=== PATIENT | male | born 1955 | race Caucasian/White ===

== ENCOUNTER → 2016-09-30 | Outpatient (CLI) | payer OTHER ==
[~2016-09-30] MED LIST: ASPIRIN LO-DOSE81 MG PO; CENTRUM SILVER1 TAB PO; DULCOLAX5 MG PO; DUONEB INH; LIPITOR80 MG PO; NICODERM / HABIT7 MG TOP; NORCO 5-325 TA1 EACH PO; NORVASC10 MG PO; PRINIVIL (ZESTR20 MG PO; VALIUM5 MG PO
== END | disposition disaster alternative care site (69) ==
LOC: GKIC 09:58
DX: R91.8 Other nonspecific abnormal finding of lung field (principal)
CPT/HCPCS: A9552

== ENCOUNTER 2016-10-22 17:00 | Inpatient (IN) | payer OTHER ==
[~2016-10-22] VITALS: Ht 185.4 cm; Wt 91.5 kg
--- NOTE | ~2016-10-22 | PUL ---
PATIENT'S NAME: ANNA MORALES [facility] AGE: 61 Y [address] ROOM: [place] [address] LOCATION: GPCU ADMIT DATE: 10/28/2016 Pulmonary DISCHARGE DATE: 11/04/2016 FAMILY PHYSICIAN: Jasvir Juarez MD ATTENDING PHYSICIAN: Elio Sahni NAME OF PROCEDURE: Overnight Trend Oximetry DATE OF PROCEDURE: November 03 to November 04, 2016 REASON FOR EXAM: Nocturnal hypoxemia RESULTS: The patient underwent overnight trend oximetry with saturations ranging from 68% to 98%. Saturations were below 88% for more than 5 minutes. Heart rate ranged from 59 to 82 beats per minute. MD JAYLA ALTMAN/ /[id number] dtt: 11/12/16 1303 , Jordan Spencer. dtd: 11/05/16 1327
--- NOTE | ~2016-10-22 | DS ---
PATIENT'S NAME: ANNA MORALES [facility] AGE: 61 Y [address] ROOM: [id number] [place], [place] [address] LOCATION: GPCU ADMIT DATE: 10/28/2016 Discharge Summary DISCHARGE DATE: 11/04/2016 FAMILY PHYSICIAN: Jasvir Juarez MD ATTENDING PHYSICIAN: Elio Cao HOSPITAL COURSE: The patient is a 61-year-old white male with a left upper lobe mass concerning for cancer. He was seen in consultation by Dr. Cao. He underwent clearance in order to undergo a lobectomy. The patient's secondary diagnoses include severe peripheral vascular disease, coronary artery disease, COPD, alcohol, and tobacco abuse. He was cleared from a vascular and cardiac stand point and on 10/28/2016 presented to [facility] under the direction of Dr. Cao for a left robotic assisted upper lobe wedge resection with frozen section indicating adenocarcinoma and a left upper lobectomy. He tolerated the surgery without complication. A chest tube was placed at the time of surgery. After a short stay in the PACU, the patient was transferred up to the progressive care floor. Hospitalist services were asked to assist in monitoring the patient secondary to his alcoholism, also chemical dependent specialist saw the patient while he was here. The patient worked well with pulmonary rehab. He had no healing complications while he was in the hospital. In the early postoperative days, he did have fair quantities of pleural fluid and we were not able to discontinue the chest tube. There was also some tidaling and bubbling to the chest tube. Incidentally, the patient's pathology returned. It did return for adenocarcinoma and this was identified in the left upper lobe wedge portion, grade 2 of 3 primary tumor 1B. There were no mets noted to the lymph nodes. Eventually, we were able to discontinue the chest tube. The patient had no unusual findings on the postoperative x-ray after removal of the chest tube. He did continue to require 2 L of oxygen around the clock and therefore we did have respiratory make arrangements for home O2. The patient was found stable to discharge to home on 11/04/2016. DISCHARGE ORDERS: Diet as previous. Activity levels requiring no pulling, pushing, or lifting anything heavier than 10 pounds until December 09, 2016. The patient may remove his dressing to his left lateral chest on 11/05/2016. We will ask that he follow up with Dr. Cao and Dr. Núñez in 2 weeks on the same day. He is to see his primary care physician, Dr. Jasvir Juarez, in 1 week. PRINCIPAL DIAGNOSIS: Left upper lobe mass. SECONDARY DIAGNOSES: Adenocarcinoma, alcohol abuse, tobacco abuse, coronary artery disease, hypertension, dyslipidemia, peripheral vascular disease. PATIENT'S NAME: ANNA MORALES [facility] AGE: 61 Y [address] ROOM: [address] [address] LOCATION: GPCU ADMIT DATE: 10/28/2016 Discharge Summary DISCHARGE DATE: 11/04/2016 FAMILY PHYSICIAN: Jasvir Juarez MD ATTENDING PHYSICIAN: Elio Cao DISCHARGE MEDICATIONS: 1. Amlodipine 10 mg daily. 2. Lisinopril 20 mg daily. 3. Lipitor 80 mg daily. 4. Aspirin 81 mg daily. 5. Multivitamin 1 tab daily. 6. Dulcolax suppository 5 mg at bedtime/p.r.n. Valium 2.5 mg twice a day. 7. Nicotine patch 14 mg daily. 8. Ipratropium/albuterol one puff per inhalation 4 times a day. 9. Baldwin 5/325 one to two every 4-6 hours as needed. 10. MiraLAX 17 g up to four capfuls daily to keep bowels moving. The patient and verbalized understanding of the discharge orders. The patient was discharged to home in stable condition. ABBEY JACKSON, GEOVANNI FOR ELIO CAO, DO BOUDREAUXQ/modl /[id number] d: 11/20/162 t: 11/22/16 1514, DISCHARGE SUMMARY
--- NOTE | ~2016-10-22 | CON ---
PATIENT'S NAME: ANNA MORALES [facility] AGE: 61 Y [address] ROOM: [address] [place], [place] [address] LOCATION: GPCU ADMIT DATE: 10/28/2016 Consultation DISCHARGE DATE: FAMILY PHYSICIAN: JOEY BRANDON MD ATTENDING PHYSICIAN: Elio Sahni DATE OF CONSULTATION: 10/28/2016 CONSULTATION NOTE CHIEF COMPLAINT: Alcohol withdrawal. HISTORY OF PRESENT ILLNESS: The patient is a 61-year-old gentleman with past medical history of coronary artery disease, status post PCI; peripheral vascular disease, status post PCI; and COPD who presents here with a lung mass. The patient has a history of tobacco abuse and was found to have an incidental left lung mass. The patient was admitted to [facility] and had as CT-guided biopsy in beginning of September. During the biopsy, a biopsy was taken, but however his stay was complicated with pneumothorax. Chest tube was placed with subsequent removal. However, biopsy was nonconclusive and was admitted here today for lobectomy of left upper lung. The patient reports that since the biopsy was inconclusive, he had a subsequent PET scan which shows activity only around his solitary upper left mass. The patient was admitted today and had left upper lobe mass with lobectomy with Dr. Sahni. A chest tube was placed in after the procedure. The patient tolerated the procedure well. The patient has a history of alcohol abuse. The patient reports that he drinks at least 500 mL of Bacardi a day. He has been doing that ever since his college year. He denies drinking in the morning. However, he reports that he drinks in the morning during weekend. He reports that by the end of the day when he comes off from work he gets tremor and has to drink when he gets back to home. The patient's last drink was yesterday and reports that he has some hand shaking and irritability. The patient currently wants to decrease and/or stop his alcohol intake. The patient also was a former smoker, has close to 40 year-pack history of smoking. Last smoke was nine weeks ago. He stopped smoking and currently on nicotine patch. The patient currently denies any worsening of shortness of breath, chest pain, nausea, vomiting, abdominal pain, fever, or productive cough. The patient reports of pain around his chest tube insertion. PAST MEDICAL HISTORY: 1. COPD. PATIENT'S NAME: ANNA MORALES [facility] AGE: 61 Y [address] ROOM: [place] [address] LOCATION: GPCU ADMIT DATE: 10/28/2016 Consultation DISCHARGE DATE: FAMILY PHYSICIAN: JOEY BRANDON MD ATTENDING PHYSICIAN: Elio Sahni 2. CAD status post PCI. 3. Peripheral vascular disease, status post PCI. 4. Hypertension. 5. Alcohol abuse. PAST SURGICAL HISTORY: 1. Chest tube placement. 2. PCI for coronary artery disease and peripheral vascular disease. FAMILY HISTORY: Mother had brain cancer. He reports that father is healthy. SOCIAL HISTORY: He works for [employer]. A former smoker. Last smoke nine weeks ago. The patient has history of alcohol abuse. MEDICATIONS: 1. Amlodipine 10 mg every day. 2. Aspirin 81 mg every day. 3. Lipitor 80 mg every day. 4. Lisinopril 20 mg every day. 5. Centrum Silver tablets. ALLERGIES: BANANA, THROAT SWELLS UP. REVIEW OF SYSTEMS: All systems have been reviewed and are negative except for what I mentioned in the HPI. PHYSICAL EXAMINATION: VITAL SIGNS: Temperature 98.5, blood pressure 118/65, pulse of 85, and respiratory rate 16. GENERAL APPEARANCE: The patient is alert and awake, in no acute distress. HEENT: Head; normocephalic and atraumatic. Eyes; extraocular muscles intact. Sclerae nonicteric. Mouth; moist oral mucosa. Nose; no nasal discharge. Ears; no ear discharge. CHEST: Left-sided chest tube present. Decreased breath sounds in the left lower lung field. No rhonchi, rales, or wheezing heard. ABDOMEN: Soft, nontender, and nondistended. Bowel sounds present. EXTREMITIES: No edema. SKIN: Warm to touch. SUPPORTIVE EMPLOYMENT CASE MANAGER: Alert and oriented x3. Motor and sensory grossly intact. MUSCULOSKELETAL: Range of motion intact. No obvious joint effusion noted. PATIENT'S NAME: ANNA MORALES [facility] AGE: 61 Y [address] ROOM: [place] [address] LOCATION: GPCU ADMIT DATE: 10/28/2016 Consultation DISCHARGE DATE: FAMILY PHYSICIAN: JOEY BRANDON MD ATTENDING PHYSICIAN: Elio Sahni LABORATORY DATA: Labs: White blood cell count of 8.9, hemoglobin 13.2, MCV of 95.1, and platelets of 327,000. Albumin of 4. Creatinine 0.8, sodium of 142, potassium 4.5, and INR of 0.99. UA is unremarkable. ASSESSMENT AND PLAN: 1. Alcohol withdrawal. The patient reports of tremor and irritability. The last drink was yesterday. The patient has a history of close to 500 mL of Bacardi drink a day. The patient currently is willing to quit and/or decrease his intake. Therefore, we will start the patient on CIWA protocol. We will also start the patient on schedule Valium 5 mg t.i.d. and also add phenobarbital 30 mg b.i.d. to help with withdrawal and craving. We will continue banana bag for two more days. 2. History of coronary artery disease, status post percutaneous coronary intervention. Continue Lipitor and aspirin. 3. History of peripheral vascular disease, with stenting. Continue aspirin and statin. 4. Chronic obstructive pulmonary disease. We will add DuoNeb as needed. 5. Left upper lung mass status post lobectomy, biopsy pending. Chest tube in place. Treatment per primary team. 6. Prophylaxis. Deep venous thrombosis prophylaxis on heparin and also Pepcid for gastrointestinal prophylaxis. Greater than 70 minutes were spent on patient's care. Greater than 50% of the time was spent on direct patient's care. Assessment and plan was discussed with the patient and Dr. Sahni. A long discussion was made about alcohol cessation. The patient currently is willing to stop alcohol and wants to go home and stop or decrease the intake. We will start the patient on CIWA protocol, and add scheduled Valium and phenobarbital to help with the withdrawl. The patient's and 's questions were answered and sent with satisfaction. MD TELLO SANCHEZ/noa /[id number] d: 10/29/16 0003 t: 10/31/16 1233, CONSULTATION REPORT
--- NOTE | ~2016-10-22 | CD ---
PATIENT'S NAME: ANNA MORALES [facility] AGE: 61 Y [address] ROOM: [id number] [place], [place] [address] LOCATION: GPCU ADMIT DATE: 10/28/2016 Chemical Dependency Report DISCHARGE DATE: FAMILY PHYSICIAN: JASVIR BRANDON MD ATTENDING PHYSICIAN: Elio Cao DRUG AND ALCOHOL EVALUATION DEMOGRAPHICS: The patient is a 61-year-old male. He is from [place], [place]. PRESENTING PROBLEM: The drug and alcohol consult was ordered by his attending physician with the chief complaint being alcohol withdrawal, and his chart noted a history of alcohol abuse. MEDICAL HISTORY: The patient reported being hospitalized in the past and having a stent in his heart as well as others 5 years ago. Please see the patient's chart for full medical history. It was also noted that the patient has high blood pressure, high cholesterol, and COPD currently as well. He has a food allergy to bananas. The patient's primary care physician in [place] is Dr. Jasvir Brandon. The patient denied any unmet medical concerns or needs at this time. 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 The patient reported that he has been employed here for 14 years and enjoys this job. The patient denied any history. DRUG AND ALCOHOL USE HISTORY: Tobacco: The patient reported that he had smoked cigarettes for 40+ years in the amount of typically 2-1/2 to 3 packs per day. He is, however, on his 9th week of not smoking. He indicated that he quit smoking at that time due to health problems primarily, and that the nicotine patch has been very helpful up to this point. He attributes some of his current health problems with his heart and lungs to his history of smoking. Alcohol: The patient reported a [id number] history of drinking alcohol as well. He reports that he typically drinks on a daily basis in the amount of somewhere between 350 and 600 mL of Bacardi per day. He most often, during the week, starts at 5 o'clock after he gets home from work and drinks until he either goes to bed or his makes him quit. He did indicate that on weekends when he is not working, he will drink prior to this time, often in the morning, to help with tremors. The patient's reported that he has never gotten violent when he is drinking alcohol; however, he does get angry which she described as yelling, ranting, and cursing. She identified other PATIENT'S NAME: ANNA MORALES [facility] AGE: 61 Y [address] ROOM: [address] [place] [address] [facility] ADMIT DATE: 10/28/2016 Chemical Dependency Report DISCHARGE DATE: FAMILY PHYSICIAN: JASVIR BRANDON MD ATTENDING PHYSICIAN: Elio Cao consequences of his use as memory loss, relationship problems, embarrassment to family and friends, and marital issues. She indicated that at the end the night, he is often drunk to the point where he cannot walk or talk clearly and slurs his words. It was also indicated that he had received a DUI approximately 5 years ago. Marijuana: The patient reported that he first used marijuana in college during the 1970s. He reports that he currently uses only once in a great while when camping, the last time being Father's Day. This was described to be a total of 3 to 4 times per year. No negative consequences were reported. The patient denied any other substance use to include prescription and over- the-counter medications. He identified his drug of choice as alcohol, stating that it makes him feel good and forget problems and stressors. He also indicated that when he drinks, it gives him a chance to think and plan for his next day's work. The patient reported that he may have had a previous substance abuse evaluation when he got his DUI around 2011. He indicated that he received probation at that time, but still continued to drink alcohol. He denies any history of drug and alcohol treatment. NEGATIVE CONSEQUENCES OF USE: The patient's , who was present during the evaluation today and gave a great deal of input, indicated that his co-workers know about his drinking as well as family, and she feels that it contributes to family problems the most. She does not want the grand-kids around him when he is drinking, so he is often excluded from family activities. The patient's also worries about his safety, his health, and possible continued legal problems, indicating that if he gets another DUI, he would most likely lose his job. As previously mentioned, the patient received a DUI around the year 2011. At that point, he got 6 months of probation and also had a breathalyzer machine connected with his car. It was indicated that the patient continued to drink during this probation. The patient indicated that he has tried to cut down or quit a couple of times in the past, but would usually only make it to maybe possibly 3 days due to withdrawal symptoms. He indicates that he has cravings and strong urges to use. He has experienced both blackout and memory loss due to drinking alcohol. His drinking has caused recurrent interpersonal problems including being late to or skipping family gatherings and obligations altogether due to already being intoxicated prior to the event. The patient reported having accidents that were related to his drinking to include being intoxicated both times when he fell down and broke ribs, needing medical attention. The patient denies any history of overdose and indicated that he does not get hangovers. He did report a history of withdrawal symptoms, stating that he gets these on a daily basis. His indicated that he wakes up with withdrawal symptoms to include shakes and tremors; however, denied any history of seizures. The patient did not indicate any triggers to use, but PATIENT'S NAME: ANNA MORALES [facility] AGE: 61 Y [address] ROOM: [id number] [place] [address] [facility] ADMIT DATE: 10/28/2016 Chemical Dependency Report DISCHARGE DATE: FAMILY PHYSICIAN: JASVIR BRANDON MD ATTENDING PHYSICIAN: Elio Cao both he and his indicate that it is just a part of his every day routine. His use is not necessarily based on any influence of family or friends, but the patient just drinks on his own as part of his daily routine. It was reported that his , daughter, and parents have all voiced concerns about his drinking. The primary concern is around his health or family problems and issues that are caused by his drinking. The patient denied any known family history of alcohol or drug use or abuse. LEGAL HISTORY: As noted above under Negative Consequences, the patient did get a DUI around 2011 by which he completed 6 months of probation. He has no further legal history related to substance use. The patient is not currently on probation, so the SSI and SRARF results and background check are unavailable. FAMILY/SOCIAL/PEER HISTORY: This patient lives with his in [place], [place]. They have been 18 years, and between the 2 of them, have 6 children. Two of their children still live in the [place] area, and they have a close relationship with all of their children. They also reported having 3 grandchildren. The patient denied any family history of mental health problems or substance use. PSYCHIATRIC/BEHAVIORAL HISTORY: The patient denied any history of psychiatric hospitalizations. He denied any previous outpatient mental health counseling. The patient denied any mental health symptoms such as depression or anxiety. He also denied any suicidal ideations or attempts or self-harming behaviors. He did identify a trauma history or grief struggle to include the of his mother and best friend, which the patient's indicated affects him every day. COLLATERAL INFORMATION: The physician notes on this patient were reviewed for collateral information as well as information gained from the patient's who participated in this evaluation as well. No dicrepancies were noted. ASAM CRITERIA: 1. The patient appears to be at high risk in this dimension. Although he is currently at [facility] and being treated for alcohol withdrawal symptoms, this could continue to cause problems once the patient returns home. As previously mentioned, this patient reported daily withdrawal symptoms from alcohol including shakes and tremors when he wakes up in the morning. 2. Biomedical conditions and complications: The patient appears to be at moderate risk in this dimension. It was indicated that some of this patient's current physical illnesses and medical concerns may be connected to his alcohol consumption and could complicate treatment. PATIENT'S NAME: ANNA MORALES [facility] AGE: 61 Y [address] ROOM: [id number] [place], [place] [address] LOCATION: [facility] ADMIT DATE: 10/28/2016 Chemical Dependency Report DISCHARGE DATE: FAMILY PHYSICIAN: JASVIR BRANDON MD ATTENDING PHYSICIAN: Elio Cao 3. Cognitive, behavioral, and emotional conditions: The patient is at low risk in this dimension. There are no psychiatric illnesses or psychological, behavioral, or emotional problems that need to be addressed or might complicate treatment. 4. Readiness/motivation: The patient appears to be at the early contemplation stage of change. He did indicate that he would be willing and believes he needs to cut down his drinking; however, is not highly motivated to abstain from alcohol use. Due to this, the patient appears to be at moderate to high risk in this dimension. 5. Relapse, continued use, continued problem: The patient appears to be at high risk in this dimension. Although he is considering cutting down and agrees with his that his drinking is somewhat problematic, he is not highly motivated to abstain from use at this time. His drinking has been part of this patient's daily routine for the past 40 years, making this a very difficult habit to change. He does not appear to have an understanding of or the skills needed to cope with his alcohol use symptoms or impulses to use. Recovery environment: The patient appears to be at moderate risk in this dimension. Although there are no dangerous family members, or living situations that would pose a threat to treatment engagement and success, [place] and options. He is also not in support of groups such as AA or any jemima-based support. Due to the demographics, there is a lack of support and resources that could increase the likelihood of successful treatment. CLINICAL IMPRESSION: The patient was willing to meet for the evaluation, but was very cautious and did not appear to necessarily want to meet. His overall affect was consistent with his mood. He seemed frustrated at times regarding the information that was being brought out in this evaluation. The patient appears to currently be at the early stages of contemplation. His main motivation to make any change around his drinking is tied to his family members and their concern. It is believed by this author that had the patient's not been there, he would have given little to no information regarding his substance use. Because his was present, however, a great deal of information was obtained regarding his substance use issues, mainly around alcohol. DIAGNOSIS: 303.90 (F10.20) severe alcohol use disorder. The patient meets the following criteria for severe alcohol use disorder: Alcohol is taken in larger amounts over a longer period of time than intended. Unsuccessful efforts to cut down. A great deal of time being spent using alcohol. Cravings. Recurrent alcohol use resulting in failure to fulfill obligations at home. Continued alcohol use despite having persistent interpersonal problems that are caused or exacerbated by the effects of alcohol. Tolerance and withdrawal. PATIENT'S NAME: ANNA MORALES [facility] AGE: 61 Y [address] ROOM: [id number] [place], [place] [address] [facility] ADMIT DATE: 10/28/2016 Chemical Dependency Report DISCHARGE DATE: FAMILY PHYSICIAN: JASVIR BRANDON MD ATTENDING PHYSICIAN: Elio Cao TREATMENT RECOMMENDATIONS: The primary level of care being recommended at this time would be outpatient treatment. This level of care may not be available in this patient's particular community, but is available in some of the surrounding towns. A secondary level of care for this patient would be short-term inpatient treatment. There appears to be several barriers to any level of treatment at this time. Although the patient verbalized that he would cut down on alcohol, he is not highly motivated to do so, especially not to completely quit. In the community in which the patient resides, there are AA meetings available, but he is not receptive to this at this time. He also did not appear very receptive to outpatient treatment either, especially since he would likely have to drive to another town in order to participate at this level. The patient reported not being receptive to AA or any other jemima-based treatment. He was not necessarily in support of short-term inpatient either, but in hearing the concerns of his , has some slight motivation to make change. Formal treatment even at the lower levels recommended above may not be considered by the patient at this time. The primary co-occurring issues to his drinking are currently concerns by his family members as well as current medical difficulties. Both of these may provide leverage for him to seek treatment upon his discharge from [facility]. RUSS BENAVIDEZJulia, [facility] ELIO CAO DO PT/modl /[id number] cc: JASVIR BRANDON MD, Family Physician Elio Cao DO, Attending Physician d: 11/03/16 1233 t: 11/07/16 0933, CHEMICAL DEPENDENCY/PSYCHOSOCIAL ASSESSMENT~
--- NOTE | ~2016-10-22 | OR ---
PATIENT'S NAME: ANNA DYE [facility] AGE: 61 Y [address] ROOM: [address] [place] [id number] LOCATION: GPCU ADMIT DATE: 10/28/2016 OR/Procedure Report DISCHARGE DATE: FAMILY PHYSICIAN: JASVIR BRANDON MD ATTENDING PHYSICIAN: Elio Cao SURGEON: Elio Cao DO CEMENT RUBBER: DATE OF PROCEDURE: 10/28/2016 PREOPERATIVE DIAGNOSES: 1. Left upper lobe mass. 2. Active alcoholism. POSTOPERATIVE DIAGNOSES: 1. Left upper lobe mass. Frozen section indicating adenocarcinoma. 2. Active alcoholism. PROCEDURE: Left robotic-assisted upper lobe wedge resection with frozen section indicating adenocarcinoma and left upper lobectomy. DESCRIPTION OF PROCEDURE: Mr. Dye is a 61-year-old white male with the above-noted diagnosis. He has been brought to the operative suite today for his procedure after informed consent was obtained. He was intubated with a dual-lumen endotracheal tube and then placed into the lateral decubitus position sterilely prepped and draped. We then made our initial incision in the 7th intercostal space in the midaxillary line and introduced an 8 mm port. We then visualized the remaining 3 ports going in, two 12's and another 8 in the 7th-8th intercostal space in the lateral line. We then made an incision and introduced a 12 mm assistance port. We then docked the robot, instilled carbon dioxide, and I returned to the console. The left upper lobe mass was easily identified, and with graspers and an endoscopic stapler, we resected the upper lobe mass, sent this for frozen section. This did indicate adenocarcinoma. Therefore, we proceeded with completing left upper lobectomy. We identified the hilar structures anteriorly, and with careful dissection, circumferentially dissected the pulmonary vein and identified the pulmonary artery. We turned then to the fissure and identified this easily, opened the fissure utilizing endoscopic stapling device with a blue load at the apical area, divided the loose attachments of the upper and lower lobe, and then continuous electrocautery with dissection to identify the arterial structure to the upper lobe in their entirety. We then divided these vessels of which there were 6 with a stapling device. Once this was completed, we then turned our attention back to the venous drainage structure and again divided this with a vascular stapler. There were 2 additional smaller branches. With dissection, we circumferentially dissected free and divided these with a vascular stapler. We then continued to perform careful dissection around the PATIENT'S NAME: ANNA DYE [facility] AGE: 61 Y [address] ROOM: [address] [place], [place] [address] [facility] ADMIT DATE: 10/28/2016 OR/Procedure Report DISCHARGE DATE: FAMILY PHYSICIAN: JASVIR BRANDON MD ATTENDING PHYSICIAN: Elio Cao bronchus and then utilizing the stapling device again with a green load, divided the bronchus in 2 separate portions and then the specimen was placed in an EndoCatch bag. Lymphadenectomy was then performed in the #4, #5, #6, #10, and #8 areas. Inferior pulmonary ligament was freed with electrocautery. The specimen was removed. Copious amounts of antibiotic-infused saline was used to irrigate the pleural space under robotic visualization. Anesthesia began ventilations to remaining left lower lobe under sterile water irrigation. There was no evidence of any leak from the cuff. All irrigant was removed. Two chest tubes were placed in addition through the most anterior 2 ports and then the 2 lateral ports were closed. We then enlarged the assistance port anteromedially by another 2 cm and then removed the EndoCatch bag. This incision was then closed in layered fashion with 0 Vicryl, 2-0 Vicryl, and 4-0 Monocryl. 0.25% Marcaine was used to perform intercostal blocks and infiltration of the fascia as well. Chest tubes were placed to suction. The patient was extubated and returned to the recovery room in stable condition. ELIO CAO DO MCB/modl /[id number] CC: Jasvir Brandon MD d: 10/28/162012 t: 10/29/16 1042, OPERATIVE SUMMARY
[~2016-10-22 17:00] MED LIST changes: -DULCOLAX5 MG PO; -DUONEB INH; -NICODERM / HABIT7 MG TOP; -NORCO 5-325 TA1 EACH PO; -VALIUM5 MG PO
[2016-10-28 08:35] LABS: HEMATOCRIT 38.9 % (37.0-53.0); HEMOGLOBIN 13.2 g/dL (11.0-16.0); MCH 32.3 pg (27.0-34.0); MCHC 33.9 gm/dL (32.0-36.5); MCV 95.1 fl (83.0-98.0); MPV 9.3 fl (9.4-12.4); PLATELET COUNT 327 K/uL (150-450); RBC 4.09 M/uL (3.50-5.50); RDW-CV 12.3 % (11.9-14.6); WBC 8.9 K/uL (4.0-11.0)
[2016-10-28 08:45] LABS: INR - (THERAPEUTIC) 0.99 (0.92-1.07); PROTIME 10.4 SECONDS (9.8-11.4)
[2016-10-28 08:48] LABS: ALBUMIN 4.1 gm/dL (3.5-5.0); ANION GAP 11.5 (10.0-19.0); BLOOD UREA NITROGEN 14 mg/dL (6-24); CALCIUM 8.8 mg/dL (8.5-10.5); CHLORIDE 107 mMol/L (96-110); CO2 28 mMol/L (22-32); CREATININE 0.8 mg/dL (0.6-1.3); PHOSPHORUS 2.8 mg/dL (2.5-4.9); POTASSIUM 4.5 mMol/L (3.7-5.1); SODIUM 142 mMol/L (135-145)
[2016-10-28 09:21] LABS: BILIRUBIN URINE NEGATIVE (NEGATIVE); BLOOD URINE NEGATIVE /UL (NEGATIVE); COLOR URINE YELLOW (YELLOW); GLUCOSE URINE NEGATIVE (NEGATIVE); KETONE URINE NEGATIVE (NEGATIVE); LEUKOCYTES URINE NEGATIVE /UL (NEGATIVE); NITRITE URINE NEGATIVE (NEGATIVE); PROTEIN URINE NEGATIVE (NEGATIVE); SPEC GRAVITY URINE 1.025 (1.003-1.035); TURBIDITY URINE CLEAR (CLEAR); UROBILINOGEN URINE NORMAL (NORMAL)
[2016-10-28 11:06] LABS: ABSOLUTE NEUTROPHIL CT (ANC) 5.4 K/uL (1.4-9.0); BANDED NEUTROPHIL # 0.2 K/uL (0.0-0.1); BANDED NEUTROPHILS % 2 %; LYMPHOCYTE # 2.9 K/uL (0.8-4.0); LYMPHOCYTE % 33 %; MONOCYTE # 0.4 K/uL (0.0-1.0); SEGMENTED NEUTROPHIL # 5.3 K/uL (1.4-9.0); SEGMENTED NEUTROPHIL % 59 %
--- NOTE | 2016-10-28 21:03 | NUR ---
Significant Event:A/O X 3. Resting in bed. HR in 80's, SBP 110's. NO edema. L) lower lobe absent, clear diminished lung sounds on the right. O2 sats >90% on 2L/NC. ETCO2 in 40's. POSt op vital signs start @ 1700. CT to l) side with 2 tubes going into one tube, slight amount of bubbling in chamber, attached to suction. 160 ml bloody drainage out of chest tube when arrived to the floor. Likes brewed tea and tolerating it well. Reports some pain, but is using Morphine PSYCH SPECIALIST, last NOrco at 1416 in recovery. Fentanyl also in recovery. IV toradol dose started at 1814. Nicotine patch to R) anterior chest, quit smoking 8 weeks ago. and patient voice concerns that patient has DT's every day just prior to drinking regimen of 600-750 ml of Barcadi Rum daily. Banana bag given in OR, CIWA score 4 at this time. Madan calf pneumatics on legs. Dressing to L) chest is C/D/I. Tolerating soft diet of mashed potatoes and ice cream at supper time. is supportive at the bedside. IVF infusing. in R) hand PIV. Keita patent. Last BM was 10/28/16, requested MOM but declined rectal suppository. Follow up:
[2016-10-28 21:53] LABS: INR - (THERAPEUTIC) 0.97 (0.92-1.07); PROTIME 10.2 SECONDS (9.8-11.4)
[2016-10-29 03:56] LABS: BASOPHIL % 0.1 %; HEMATOCRIT 33.9 % (37.0-53.0); HEMOGLOBIN 11.4 g/dL (11.0-16.0); IMMATURE GRANULOCYTE # 0.1 K/uL (0.0-0.3); IMMATURE GRANULOCYTE % 0.3 %; LYMPHOCYTE # 1.7 K/uL (0.8-4.0); LYMPHOCYTE % 11.1 %; MCH 33.6 pg (27.0-34.0); MCHC 33.6 gm/dL (32.0-36.5); MONOCYTE # 1.5 K/uL (0.0-1.0); MONOCYTE % 9.9 %; MPV 9.8 fl (9.4-12.4); NEUTROPHIL # (ANC) 11.8 K/uL (1.4-9.0); NEUTROPHIL % 78.6 %; NRBC % 0 /100WBC (0-0.00); RBC 3.39 M/uL (3.50-5.50); RDW-CV 12.8 % (11.9-14.6); WBC 15.1 K/uL (4.0-11.0)
[2016-10-29 04:03] LABS: PLATELET COUNT 252 K/uL (150-450)
--- NOTE | 2016-10-29 04:16 | NUR ---
Significant Event: Patient A/Ox3. VSS on 1-2L NC. Patient has L) chest tubes to 20mmHg suction. 720ml out total since tubes placed. Patient does appear to be detoxing from alcohol, so CIWA assessment completed Q1H. Lorazepam and diazepam given. Morphine DENTAL AMALGAM PROCESSOR demand dose only 1mg with 6 minute lockout. Patient had 27 demands and 27 deliveries. Patient has slept well most of the later part of the night. Tremors noted. Patient feels his pain is well controlled. Follow up: Continue to monitor for alcohol withdrawal.
[2016-10-29 04:17] LABS: ALBUMIN 3.4 gm/dL (3.5-5.0); ANION GAP 12.4 (10.0-19.0); CALCIUM 7.7 mg/dL (8.5-10.5); CREATININE 0.9 mg/dL (0.6-1.3); POTASSIUM 4.4 mMol/L (3.7-5.1); TOTAL BILIRUBIN 0.5 mg/dL (0.0-1.5); TOTAL PROTEIN 6.3 g/dL (6.0-8.4)
--- NOTE | 2016-10-29 13:58 | NUR ---
1205 Came by to see Shiv but RT was in doing a breathing treatment with him so I will try to see at a different time. In reviewing his chart, it appears that he lives in [place] with his . His PCP is listed as . I am guessing upon dismissal he will be able to return home. Talked with his RN Dilia about this. She thinks he will be able to return home as well. She reports that he still has a CT in at this time and is on the detox pathway for his alcohol issues. Let her know I would come back by to see him later today or on Tuesday to talk with him about his dismissal plans. CM to continue to follow and assist. Plan home.
--- NOTE | 2016-10-29 16:50 | NUR ---
PATIENT HAS BEEN UP IN CHAIR AND AMBULATED IN HALLWAY X1 AND WALKED THE WHOLE SIDE OF THE FLOOR AND TOLERATED WELL. PATIENT IS STILL ON 1 LITER NC. CHEST TUBE IS NOW TO WATER SEAL AND HAD 240ML OUT. RESEARCH ANALYST WAS DC'D, NORCO GIVEN AT 1600.
--- NOTE | 2016-10-30 05:14 | NUR ---
Significant Event:A/Ox3. Drowsy most of the shift. CT to H20 seal with 130ml sanguineous drainage, with tidaling with respirations. [place] given q4h to stay above the pain. Last dose 0130. O2 continues at 2L/NC sats 92-95%. Keita discontinued at 0400. No void as of this note. Calm and cooperative with cares. CIWA score 2-5 throughout the shift. Follow up:Continue to monitor CT and pain.
[2016-10-30 05:58] LABS: BASOPHIL # 0.1 K/uL (0.0-0.2); BASOPHIL % 0.5 %; EOSINOPHIL # 0.1 K/uL (0.0-0.5); EOSINOPHIL % 1.2 %; HEMATOCRIT 32.2 % (37.0-53.0); HEMOGLOBIN 10.5 g/dL (11.0-16.0); IMMATURE GRANULOCYTE % 0.2 %; LYMPHOCYTE # 3.3 K/uL (0.8-4.0); MCH 33.1 pg (27.0-34.0); MCHC 32.6 gm/dL (32.0-36.5); MCV 101.6 fl (83.0-98.0); MONOCYTE # 1.1 K/uL (0.0-1.0); MONOCYTE % 8.8 %; MPV 9.7 fl (9.4-12.4); NEUTROPHIL # (ANC) 7.6 K/uL (1.4-9.0); NEUTROPHIL % 62.3 %; NRBC % 0 /100WBC (0-0.00); PLATELET COUNT 239 K/uL (150-450); RBC 3.17 M/uL (3.50-5.50); RDW-CV 12.7 % (11.9-14.6); WBC 12.1 K/uL (4.0-11.0)
[2016-10-30 06:29] LABS: ALK PHOS 62 IU/L (33-138); ALT 25 IU/L (12-78); AST 30 IU/L (10-40); BLOOD UREA NITROGEN 9 mg/dL (6-24); CALCIUM 7.7 mg/dL (8.5-10.5); CHLORIDE 107 mMol/L (96-110); CO2 30 mMol/L (22-32); CREATININE 0.7 mg/dL (0.6-1.3); MAGNESIUM 2.4 mg/dL (1.8-2.6); SODIUM 141 mMol/L (135-145); TOTAL BILIRUBIN 0.4 mg/dL (0.0-1.5); TOTAL PROTEIN 5.8 g/dL (6.0-8.4)
--- NOTE | 2016-10-30 16:58 | NUR ---
PATIENT HAS BEEN RESTING THROUGHOUT DAY. HE HAS ATTEMPTED A BM X2 BUT ONLY GAS. PATIENT HAS RECEIVED NORCO [address] TABS [address] OUTPUT 210ML TODAY. HE WAS GIVEN BUMEX 2MG IV TODAY AND HAS HAD GREAT UOP. TIDALING IS LESS AND BUBBLING HAS DECREASE TODAY.
--- NOTE | 2016-10-31 04:56 | NUR ---
Significant Event:A/Ox3. VSS on 2L/NC to maintain >90%. Ambulated in halls x2, on 2nd walk we did increase oxygen to 3L/NC. Lungs sounds clear/diminished. CT to H2O seal with tidaling with respirations, no bubbling noted. [place] x2 tonight with pain well controlled. CT continues to have sanguineous drainage, 120ml output. CIWA score 0-4. Follow up:Continue to monitor chest tube.
[2016-10-31 05:44] LABS: ALBUMIN 3.2 gm/dL (3.5-5.0); ALK PHOS 76 IU/L (33-138); ALT 23 IU/L (12-78); ANION GAP 10.2 (10.0-19.0); AST 30 IU/L (10-40); BLOOD UREA NITROGEN 6 mg/dL (6-24); CALCIUM 8.3 mg/dL (8.5-10.5); CHLORIDE 104 mMol/L (96-110); CO2 31 mMol/L (22-32); CREATININE 0.6 mg/dL (0.6-1.3); POTASSIUM 4.2 mMol/L (3.7-5.1); SODIUM 141 mMol/L (135-145); TOTAL BILIRUBIN 0.5 mg/dL (0.0-1.5); TOTAL PROTEIN 6.3 g/dL (6.0-8.4)
--- NOTE | 2016-10-31 16:37 | NUR ---
Significant Event: 2 JONO STOLLS THIS AM, BUT NONE SINCE. PT SAYS HE DOES FEEL BETTER. WALKED IN [place] X1, HERE MOST OF THIS SHIFT. KEEPING UP ON PAINMEDS PT HAS NO DRONE SOFTWARE DEVELOPMENT ENGINEER ON. VOIDS PER URINAL. PLEASENT AND COOPERATIVE WITH CARES. HE DOES HAVE A SMALL AMT OF CREPITIS RIGHT AROUND THE INCISION/DRESSING SITE, HAS NOT CHANGES IN SIZE THIS SHIFT. Follow up: MONITOR
--- NOTE | 2016-11-01 03:53 | NUR ---
Significant Event: Patient alert and oriented. Up with 1 assist. VSS on 2L oxygen. [place] given x2 for pain management last at 0245. Chest tube to left with 80 ml out. Ambulated in panchal. Pleasant and cooperative with cares. Follow up: continue to monitor
[2016-11-01 06:01] LABS: ALBUMIN 2.9 gm/dL (3.5-5.0); ALK PHOS 85 IU/L (33-138); ALT 22 IU/L (12-78); ANION GAP 7.5 (10.0-19.0); AST 23 IU/L (10-40); BLOOD UREA NITROGEN 7 mg/dL (6-24); CALCIUM 8.7 mg/dL (8.5-10.5); CHLORIDE 103 mMol/L (96-110); CO2 33 mMol/L (22-32); CREATININE 0.7 mg/dL (0.6-1.3); MAGNESIUM 1.9 mg/dL (1.8-2.6); POTASSIUM 4.5 mMol/L (3.7-5.1); SODIUM 139 mMol/L (135-145); TOTAL BILIRUBIN 0.5 mg/dL (0.0-1.5); TOTAL PROTEIN 6.2 g/dL (6.0-8.4)
--- NOTE | 2016-11-01 17:31 | NUR ---
Significant Event: PT HAD AN UNEVENTFUL DAY UNTIL ABOUT 1530 WHEN HE STOOD UP TO USE HIS URINAL AND GOT HIS CHEST TUBE CAUGHT UNDER HIS RECLINER. HE PULLED THE SOFT TUBING AWAY FROM THE CHEST TUBES THEMSELVES. WAS ABLE TO PUSH THEM BACK TOGETHER AND TAPE THEM UP TO HIS FLANK BETTER. CALLED DR CAO ORDERS RECIEVED. Follow up: PLAN ON CHEST TUBE REMOVAL Tuesday.
[2016-11-02 05:10] LABS: ALK PHOS 111 IU/L (33-138); ALT 36 IU/L (12-78); ANION GAP 10.5 (10.0-19.0); AST 41 IU/L (10-40); BLOOD UREA NITROGEN 8 mg/dL (6-24); CALCIUM 9.2 mg/dL (8.5-10.5); CHLORIDE 101 mMol/L (96-110); CO2 32 mMol/L (22-32); CREATININE 0.7 mg/dL (0.6-1.3); MAGNESIUM 1.9 mg/dL (1.8-2.6); POTASSIUM 4.5 mMol/L (3.7-5.1); SODIUM 139 mMol/L (135-145); TOTAL BILIRUBIN 0.5 mg/dL (0.0-1.5); TOTAL PROTEIN 6.3 g/dL (6.0-8.4)
--- NOTE | 2016-11-02 05:23 | NUR ---
Significant event: A/O x 3. Up to bathroom with [address] to water seal at midnight, had 170ml out throughout the night. [place] 2 tabs given x 2 with the last time at 0300. VSS patient on 1L nc with sats in the mid 90's.
--- NOTE | 2016-11-02 16:03 | NUR ---
A-NUTRITION F/U S/P L)LOWER LOBECTOMY. CHEST TUBE TO WATER SEAL LABS REVIEWED: GLU 117, BUN 3.0 MEDS: VALIUM DIET RX; REGULAR W/ENSURE ENLIVE BID. PO INTAKE HAS BEEN 100%. PT IS CHOOSING A VARIETY OF FOODS AT EACH MEAL. EST NUTR NEEDS: [id number] KCALS AND 108 GM PROTEIN D-NUTRITION PROBLEM RESOLVED W/ADEQUATE PO INTAKE. NOT AT RISK; NO NUTRITION DX IDENTIFIED. I-CONTINUE W/ENSURE ENLIVE BID TO MAINTAIN NUTRITION STATUS M/E-WILL ASSIST NEEDED
--- NOTE | 2016-11-02 17:23 | NUR ---
Significant Event: Pt alert and oriented x3. Pt 1PA and ambulated 11 laps of PCU with PT during the shift. Pain to left flank controlled with [place] 5/325 PO two tablets and last given at 1418. 80 ml of drainage from left chest tube during the shift. IV to R) AC, saline lock. Follow up: chest x-ray in am.
--- NOTE | 2016-11-03 04:41 | NUR ---
Significant Event: A/O x3. Afebrile. Left sided pain where chest tubes located, gave norco 1 tab x1. LS clear/dim. SBP 100-114. Chest tube water sealed with 20ml out. Up 1 assist. Cooperative with cares. Follow up: Continue to monitor per plan of care.
[2016-11-03 05:04] LABS: ALBUMIN 3.2 gm/dL (3.5-5.0); ALK PHOS 136 IU/L (33-138); ALT 66 IU/L (12-78); AST 71 IU/L (10-40); BLOOD UREA NITROGEN 8 mg/dL (6-24); CALCIUM 9.4 mg/dL (8.5-10.5); CHLORIDE 99 mMol/L (96-110); CO2 33 mMol/L (22-32); CREATININE 0.7 mg/dL (0.6-1.3); MAGNESIUM 1.9 mg/dL (1.8-2.6); SODIUM 137 mMol/L (135-145); TOTAL BILIRUBIN 0.5 mg/dL (0.0-1.5); TOTAL PROTEIN 6.9 g/dL (6.0-8.4)
--- NOTE | 2016-11-03 12:29 | NUR ---
Introduced self and CM role to Shiv, his and other family member who was at bedside. Shiv tells me that he lives in [facility] with his and plans to return there when he is medically cleared to do so. His PCP is Dr.Garrett Juarez and he follows up with him or another physician at the clinic whenever he needs to. He does his own medications at home, his is there to help him if he should need it. Jai tells me he will continue to do his own medication management at home when he is dismissed. Let him know that I did get a consult to talk with him about his ETOH abuse. He is not currently wanting inpatient treatment, so no CD eval will be done while he is here. Jai was open to resources so I provided him with area inpatient/outpatient treatment centers and counselors in the surrounding areas incase he would change his mind. Also let him know that he could get a CD eval done and an outpatient if he should wish to do so. Jai doesn't have any DME at home, but thinks he might want a FWW when he goes home to help with balance. Gave him a list of DME companies here in [facility] where he could obtain one prior to his dismissal. I left a script on the chart for MD to sign for a FWW for Jai. He and family deny any other questions, needs or concerns. Sticky note left on the chart re:dismissal plans -- home with no inpt ETOH treatment wanted, resources left with him. CM to continue to follow and assist.
--- NOTE | 2016-11-03 16:46 | NUR ---
Significant Event: Pt A/O x3. Pt rates pain 3-6 throughout shift, controlled with [place] 2 tabs. Last dose given at 1443, two tabs. Pt 1PA, uses wc as walker if ambulating hallways. Dr. Sahni removed chest tubes from pt around 1200. Will have f/u chest x-ray in am. Right FA PIV sl'd. Follow up:
--- NOTE | 2016-11-04 03:55 | NUR ---
Pt A&Ox4. VSS on 0-2L O2. Trend ox this shift. Dressing to left lateral chest CDI. Recieves 2 norco q4hrs for pain control, with good relief. Alcohol withdrawl protocol in place. Voiding and taking PO without issue. Possible D/C in AM.
[2016-11-04 04:17] LABS: ALBUMIN 3.2 gm/dL (3.5-5.0); ALK PHOS 133 IU/L (33-138); ALT 73 IU/L (12-78); ANION GAP 10.4 (10.0-19.0); AST 60 IU/L (10-40); CALCIUM 8.8 mg/dL (8.5-10.5); CHLORIDE 99 mMol/L (96-110); CO2 32 mMol/L (22-32); CREATININE 0.8 mg/dL (0.6-1.3); MAGNESIUM 2.4 mg/dL (1.8-2.6); POTASSIUM 4.4 mMol/L (3.7-5.1); SODIUM 137 mMol/L (135-145); TOTAL PROTEIN 6.6 g/dL (6.0-8.4)
[2016-11-04 04:18] LABS: BLOOD UREA NITROGEN 13 mg/dL (6-24); TOTAL BILIRUBIN 0.3 mg/dL (0.0-1.5)
[2016-11-04] MEDS ORDERED: DULCOLAX5 MG PO (11:59)
[2016-11-04] MEDS ORDERED: VALIUM5 MG PO ×2 (12:02)
[2016-11-04] MEDS ORDERED: DUONEB INH (12:05)
[2016-11-04] MEDS ORDERED: NICODERM / HABIT7 MG TOP (12:05)
[2016-11-04] MEDS ORDERED: NORCO 5-325 TA1 EACH PO (12:07)
--- NOTE | 2016-11-04 13:56 | NUR ---
PATIENT A/Ox3. VSS on 2L/NC, WHICH PATIENT AND HAVE BEEN INSTRUCTED ON HOW TO USE AT HOME, BY HOME CARE. PIV DISCONTINUED TO R)AC. PATIENT, AND RN DISCUSSED DISMISSAL INSTRUCTIONS AND NEW MEDICATIONS. ALL QUESTIONS ANSWERED AND PATIENT AND EXPRESS NO CONCERNS WITH DISCHARGE. CANCER INSURANCE PAPERWORK WILL BE FAXED TO ESTER JACKSON APRN TO FILL OUT AND MAIL BACK TO PATIENT. PATIENT TRANSPORTED TO PRIVATE VEHICLE VIA WC WITH LEGAL OFFICE ADMINISTRATOR AND AT 1355.
== END 2016-11-04 14:00 | disposition disaster alternative care site (69) | DRG 163 ==
LOC: GPCU 10-28 06:59
PROVIDERS: Internal Medicine; ADMIT Thoracic Surgery (Cardiothoracic Vascular Surgery)
DX: C34.12 Malignant neoplasm of upper lobe, left bronchus or lung (principal); J96.01 Acute respiratory failure with hypoxia; F10.239 Alcohol dependence with withdrawal, unspecified; I10 Essential (primary) hypertension; I25.10 Atherosclerotic heart disease of native coronary artery without angina pectoris; I73.9 Peripheral vascular disease, unspecified; J44.9 Chronic obstructive pulmonary disease, unspecified; Z86.79 Personal history of other diseases of the circulatory system; Z87.891 Personal history of nicotine dependence
CPT/HCPCS: G0237; G0424; J0690; J1100; J1644; J1885; J2001; J2060; J2250; J2270; J2405; J3010; J3411; J3475; J7030

== ENCOUNTER → 2016-11-16 | Outpatient (CLI) | payer OTHER ==
[~2016-11-16] MED LIST changes: +DULCOLAX5 MG PO; +DUONEB INH; +NICODERM / HABIT7 MG TOP; +NORCO 5-325 TA1 EACH PO; +VALIUM5 MG PO
== END ==
LOC: LNHI 12:29
DX: T81.4XXA Infection following a procedure, initial encounter (principal); Y83.9 Surgical procedure, unspecified as the cause of abnormal reaction of the patient, or of later complication, without mention of misadventure at the time of the procedure